=== PATIENT | male | born 1980 | race Caucasian/White ===

== ENCOUNTER 2017-03-28 22:14 | Emergency (ER) | payer OTHER ==
--- NOTE | 2017-03-28 22:35 | ED Physician Documentation ---
PD HPI HEENT - Stated complaint Stated Complaint: LIP SWOLLEN - Chief complaint Chief Complaint: Heent - History obtained from History obtained from: Patient - History of Present Illness Timing - onset: Today (this morning) Timing - duration: Hours Timing - details: Gradual onset Pain level now: 0 Location: Mouth (lower lip) Improves: Nothing Worsens: Other (no apparent inciting or exacerbating factors) Associated symptoms: No: Fever, Cough Similar symptoms before: Diagnosis (angioedema) Recently seen: Not recently seen - Additional information Additional information: lower lip swelling since this morning, gradually worsening over the day and evening but still limited to lower lip; he denies sensation of throat tightness or swelling, denies chest tightness, denies dyspnea. He says he has many similar episodes in the past, at times involving his hands and/or feet as well, with diagnosis of angioedema. 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 Review of Systems Throat: reports: Reviewed and negative Cardiac: denies: Chest pain / pressure Respiratory: denies: Dyspnea, Cough PD PAST MEDICAL HISTORY - Past Medical History Past Medical History: No Cardiovascular: None Respiratory: None Neuro: None Endocrine/Autoimmune: None GI: None : None HEENT: None Psych: None Musculoskeletal: None Derm: None - Past Surgical History Past Surgical History: No - Present Medications Home Medications: Ambulatory Orders Medication Instructions Recorded Confirmed Cetirizine HCl [Zyrtec] 12/19/15 Fluticasone [Flonase] 12/19/15 Ibuprofen [Motrin] 800 mg PO Q8H PRN #30 tablet 12/19/15 Epinephrine [Epipen 2-Mauricio] 0.3 mg IJ ONCE PRN #1 auto.injct 03/28/17 Prednisone 40 mg PO DAILY 3 Days 03/28/17 - Allergies Allergies/Adverse Reactions: Allergies Allergy/AdvReac Type Severity Reaction Status Date / Time No Known Drug Allergies Allergy Verified 03/28/17 22:24 - Social History Does the pt smoke?: No Smoking Status: Never smoker Does the pt drink ETOH?: Yes Does the pt have substance abuse?: No - Immunizations Immunizations are current?: Yes - POLST Patient has POLST: No PD ED PE NORMAL - Vitals Vital signs reviewed: Yes - General General: Alert and oriented X 3, No acute distress, Well developed/nourished - HEENT HEENT: Moist mucous membranes, Pharynx benign, Other (mild swelling of lower lip ) - Respiratory Respiratory: No respiratory distress, Clear bilaterally Results - Vitals Vitals: Vital Signs - 24 hr 03/28/17 03/28/17 22:21 23:30 Temperature 36.6 C Heart Rate 72 70 Respiratory 16 17 Rate Blood Pressure 128/93 H 121/79 O2 Saturation 98 98 Oxygen O2 Source Room air PD MEDICAL DECISION MAKING - ED course Complexity details: considered differential, d/w patient Departure - Departure Disposition: 01 Home, Self Care Clinical Impression: Angioedema Qualifiers: Encounter type: initial encounter Qualified Code(s): T78.3XXA - Angioneurotic edema, initial encounter Condition: Good Instructions: ED Hypertension Poss Follow-Up: THANH Robbins [Provider Group] Prescriptions: Epinephrine [Epipen 2-Mauricio] 0.3 mg IJ ONCE PRN #1 auto.injct PRN Reason: Angioedema Prednisone 40 mg PO DAILY 3 Days Discharge Date/Time: 03/28/17 23:31
[2017-03-28] MEDS ORDERED: diphenhydrAMINE 25 MG CAPSULE PO STA (22:53)
[2017-03-28] MEDS ORDERED: predniSONE 20 MG TABLET PO STA (22:54)
[2017-03-28] MEDS ORDERED: predniSONE 20 MG TABLET ONE (23:00)
[2017-03-28] MEDS ORDERED: diphenhydrAMINE 25 MG CAPSULE PO ONE (23:00)
[2017-03-28 23:31] VITALS: BP 121/79
== END 2017-03-28 23:31 | disposition home or self-care (01) ==
LOC: ED 22:14
DX: T78.3XXA Angioneurotic edema, initial encounter (principal)
CPT/HCPCS: 99283; A9270; J7512